=== PATIENT | male | born 1940 | race Caucasian/White ===

== ENCOUNTER 2017-07-29 18:12 | Emergency (ER) | payer OTHER ==
[2017-07-29 18:33] LABS: EOSINOPHIL (%) 4.3 % (0-5); EOSINOPHIL COUNT 0.5 K/uL (0-0.3); HEMATOCRIT 44.1 % (38.0-50.0); IMMATURE GRANULOCYTE (%) 1.1 % (0.0-0.7); IMMATURE GRANULOCYTE COUNT 0.1 K/uL; INSTRUMENT ABS NEUTROPHIL CT 7.2 K/uL; LYMPHOCYTE COUNT 2.7 K/uL (1.0-2.8); MCH 29.9 PG (29.0-34.0); MCV 87.8 FL (86-99); MONOCYTE (%) 5.8 % (3-12); MONOCYTE COUNT 0.6 K/uL (0-0.8); NEUTROPHIL (%) 64.5 % (45-76); NEUTROPHIL COUNT 7.2 K/uL (1.8-6.4); PLATELET COUNT 242 K/uL (156-360); RBC DIS.WIDTH-CV 12.6 % (11.8-14.6); RBC DIS.WIDTH-SD 40.6 % (39-53); RED BLOOD COUNT 5.02 M/uL (4.00-5.50); WHITE BLOOD COUNT 11.1 K/uL (4.1-10.2)
[2017-07-29 18:42] LABS: AMYLASE 72 IU/L (1-118); CHLORIDE 102 mEq/L (99-109); POTASSIUM 3.6 mEq/L (3.7-5.4); SODIUM 139 mEq/L (136-147)
[2017-07-29 18:43] LABS: GLUCOSE 147 mg/dL (70-99)
[2017-07-29 18:45] LABS: ANION GAP 12 MEQ/L (2-14)
[2017-07-29 18:47] LABS: GFR ESTIMATE (CALCULATED) > 59 mL/min/; SERUM ETHYL ALCOHOL < 10 mg/dL
[2017-07-29 18:48] LABS: UREA NITROGEN (BUN) 22 mg/dL (9-23)
[2017-07-29 18:50] LABS: LIPASE 25 U/L (1.0-51.0)
== END 2017-07-29 20:29 | disposition home or self-care (01) ==
LOC: TRA 18:12 → EME 18:12 → TRA 20:29
PROVIDERS: Emergency Medicine
PROC: 3E0234Z Introduction of Serum, Toxoid and Vaccine into Muscle, Percutaneous Approach (ICD-10-PCS; principal; 2017-07-29)
DX: S20.219A Contusion of unspecified front wall of thorax, initial encounter (principal); I71.2 Thoracic aortic aneurysm, without rupture; I71.4 Abdominal aortic aneurysm, without rupture; N28.1 Cyst of kidney, acquired; M54.2 Cervicalgia; V49.40XA Driver injured in collision with unspecified motor vehicles in traffic accident, initial encounter; Y92.411 Interstate highway as the place of occurrence of the external cause; Z23 Encounter for immunization
CPT/HCPCS: 70450; 71260; 72125; 72129; 72132; 74177; 80048; 81003; 82150; 83690; 85025; 86850; 86900; 86901; 93005; 99281; 99285; G0480; J2270; J2405